=== PATIENT | female | born 1960 | race American Indian/Alaskan Native ===

== ENCOUNTER 2017-10-05 18:10 | Inpatient (IN) | payer MEDICARE, MEDICAID ==
[2017-10-05] MEDS ORDERED: Albuterol-Ipratrop 3 mg / 0.5 (3 ml) UD INH STA ×2 (18:37→21:52)
--- NOTE | 2017-10-05 18:42 | ED PDOC ---
HPI:STROKE - Time Time: 18:40 - Historian Historian: Patient, Family - Chief Complaint Chief Complaint: Weakness, Slurred speech, other (SOB) - Onset Onset: Weeks (1 week ago) - Timing Timing: Currently Symptomatic - Location Location: Speech Locate left: Upper extremity - Severity of pain Maximum severity:: Mild Severity Current: Mild - TPA Positive for Contraindication: Yes Reason tPA is not being Administered: symptoms ongoing for one week - Notes: Notes:: 57yo female presents c/o SOB, cough, and left arm weakness with inability to raise arm above head for last week. Denies falls or trauma. Admits to occassional slurred speech over course of week but none currently. On home oxygen. NIHSS Stroke Scale - Date/Time Evaluation Performed Date Performed: 10/05/17 Time Performed: 18:25 When Was NIHSS Performed: Baseline - How Severe is the Stroke Level of Consciousness: 0=Alert LOC to Questions: 0=Both comments correct LOC to commands: 0=Obeys both correctly Best Gaze: 0=Normal Visual: 0=No visual loss Facial: 0=Normal Motor Arm - Left: 2=Falls before 10 sec Motor Arm - Right: 0=No drift Motor Leg - Left: 1=Drift before 5 sec Motor Leg - Right: 0=No drift Limb Ataxia: 0=Absent Sensory: 0=Normal Best Language: 0=No aphasia Dysarthia: 0=Normal articulation Extinction & Inattention (Neglect): 0=Normal, no object Score: 3 rTPA Inclusion/Exclusion - Refusal of Treatment Patient Refused Treatment: No - Inclusion Criteria for Altepase Patient is 18 years or Older: Yes The Clinical Diagnosis of Ischemic Stroke That is Causing a Potentially Disabling Neurological Deficit: Yes Time of Onset is Well Established to be Less Than 270 Minute Before Treatment Would Begin: No Risk/Benefit Discussed With Patient/Family Member Present: No Past Medical History Reviewed: Historical Data, Nursing Documentation, Vital Signs Vital Signs: Last Vital Signs Temp 99.0 F 10/05/17 18:19 Pulse 102 H 10/05/17 18:19 Resp 20 10/05/17 18:19 BP 125/83 10/05/17 18:19 Pulse Ox 2 L 10/05/17 18:32 - Medical History PMH: Asthma, Bronchitis, COPD (on home O2) - Family History Family History: States: Unknown Family Hx - Living Arrangements Living Arrangements: With Family - Social History Current smoker - smoking cessation education provided: No (prior quit) - Immunization History Hx Tetanus Toxoid Vaccination: No Hx Influenza Vaccination: No Hx Pneumococcal Vaccination: Yes - Home Medications Home Medications: Ambulatory Orders Medication Instructions Recorded Unobtainable 07/12/17 - Allergies Allergies/Adverse Reactions: Allergies Allergy/AdvReac Type Severity Reaction Status Date / Time No Known Allergies Allergy Unverified 10/05/17 18:18 Review of Systems ROS Statement: Except As Marked, All Systems Reviewed And Found Negative Constitutional: Negative for: Fever Cardiovascular: Positive for: Chest Pain, Palpitations Respiratory: Positive for: Cough, Shortness of Breath, Sputum, Wheezing Gastrointestinal: Negative for: Abdominal Pain Genitourinary Female: Negative for: Dysuria Musculoskeletal: Positive for: Neck Pain, Shoulder Pain, Arm Pain. Negative for : Back Pain Skin: Negative for: Rash, Lesions Neurological: Positive for: Weakness. Negative for: Numbness, Incoordination, Change in Speech Psych: Positive for: Anxiety Physical Exam - Reviewed Nursing Documentation Reviewed: Yes Vital Signs Reviewed: Yes - Physical Exam Appears: Positive for: Uncomfortable (mild resp distress) Head Exam: Positive for: ATRAUMATIC, NORMAL INSPECTION, NORMOCEPHALIC Skin: Positive for: Normal Color, Warm, DRY Eye Exam: Positive for: EOMI, Normal appearance, PERRL ENT: Positive for: Normal ENT Inspection Neck: Positive for: Normal, Painless ROM Cardiovascular/Chest: Positive for: Regular Rate, Rhythm Respiratory: Positive for: Decreased Breath Sounds, Wheezing (mild), Respiratory Distress Pulses-Radial (L): 2+ Pulses-Radial (R): 2+ Gastrointestinal/Abdominal: Positive for: Soft. Negative for: Tenderness Back: Positive for: Normal Inspection Extremity: Positive for: Normal ROM Neurologic/Psych: Positive for: Alert, senior trainer II-XII, Oriented, Motor/Sensory Deficits (L arm weakness 3/5 falls to bed cannot actively raise above head). Negative for: Aphasia, Facial Droop - Laboratory Results Result Diagrams: 10/05/17 18:59 10/05/17 18:59 - ECG ECG: Positive for: Interpreted By Me ECG Rhythm: Positive for: Normal QRS, Sinus Rhythm, Nonspecific Changes Rate: 94 O2 Sat by Pulse Oximetry: 96 Pulse Ox Interpretation: Normal (On 2L NC) Medical Decision Making Medical Decision Making: workup for SOB/ COPD exacerbation w L arm weakness and pain initiated Imaging, bloodwork, duoneb and solumedrol ordered Supp O2 continued Endorse Dr Gonzalez 7p pending workup and likely admit, ASA after imaging return Dr Sweetie harley made aware Disposition - Clinical Impression Clinical Impression: COPD exacerbation, Arm weakness - Patient ED Disposition Is Patient to be Admitted: Transfer of Care - Disposition Disposition: Transfer of Care Disposition Time: 19:10 Condition: [facility] Forms: [email or web address] (Martiniquais) Patient Signed Over To: Gage Gonzalez
[2017-10-05] MEDS ORDERED: Sodium Chloride 0.9% 1,000 ML IV SCH (18:45)
[2017-10-05] MEDS ORDERED: Albuterol-Ipratrop 3 mg / 0.5 (3 ml) UD ONE ×2 (19:04→22:53)
[2017-10-05 19:06] LABS: EOS # 0.3 K/uL (0.0-0.7); EOS % 6.5 % (0.0-4.0); HEMOGLOBIN 12.6 g/dL (12.0-16.0); LYMPH # 1.5 K/uL (1.0-4.3); LYMPH % 29.5 % (20.0-40.0); MEAN CELL VOLUME 89.9 fl (81.0-99.0); MEAN CORPUSCULAR HEMOGLOBIN 27.2 pg (27.0-31.0); MEAN CORPUSCULAR HGB CONC 30.2 g/dL (33.0-37.0); MEAN PLATELET VOLUME 10.3 fl (7.2-11.7); MONO # 0.4 K/uL (0.0-0.8); NEUT # 2.7 K/uL (1.8-7.0); RBC 4.62 Mil/uL (3.80-5.20); RED CELL DISTRIBUTION WIDTH 14.7 % (11.5-14.5)
[2017-10-05 19:25] LABS: PROTHROMBIN TIME 11.5 Seconds (9.8-13.1)
[2017-10-05 19:27] LABS: LDL CHOLESTEROL 153 mg/dL (0-129)
[2017-10-05 19:34] LABS: ALB/GLOB RATIO 1.5 (1.0-2.1); ALBUMIN 4.5 g/dL (3.5-5.0); ALT/SGPT 23 U/L (9-52); AST/SGOT 24 U/L (14-36); BLOOD UREA NITROGEN 18 mg/dl (7-17); CALCIUM 9.7 mg/dL (8.4-10.2); GFR AFRICAN-AMERICAN > 60; GFR NON-AFRICAN AMERICAN > 60; HDL CHOLESTEROL 63 MG/DL (30-70)
--- NOTE | 2017-10-05 19:44 | ED PDOC ---
- Laboratory Results Result Diagrams: 10/05/17 18:59 10/05/17 18:59 - ECG O2 Sat by Pulse Oximetry: 98 Medical Decision Making Medical Decision Making: Time: 1899 --Patient endorsed to provider by Dr. Rubio, pending CT imaging results. ASA to be given after CT. Patient will most likely require hospital admission. Time: 2116 --CT head FINDINGS: Brain: No intracranial hemorrhage. No significant white matter disease. No evidence of evolved territorial infarct. No mass effect or midline shift. Ventricles: Unremarkable. No ventriculomegaly. Bones/joints: No acute osseous abnormality. Soft tissues: No soft tissue swelling. Sinuses: Visualized paranasal sinuses are clear. Mastoid air cells: Mastoid air cells are well-aerated. IMPRESSION: No acute findings Time: 2131 --CT cspine FINDINGS: Vertebrae: Congenital non-fusion of the posterior arch of C1. Vertebral body heights are maintained. No fracture or acute listhesis. Discs/spinal canal/neural foramina: Multilevel degenerative disc disease without significant central canal stenosis. Soft tissues: No prevertebral soft tissue swelling. Lung apices: 5 mm left apical pulmonary nodule. Severe emphysema. IMPRESSION: 1. No acute findings. 2. 5 mm left apical pulmonary nodule. As per Fleischner Society guidelines for follow-up and management of pulmonary nodules less than 6 mm: For patients at high risk (history of smoking or of other known risk factors), consider follow-up chest CT at 12 months Per patient her PCP is Dr Webber at [facility] and not Dr Erickson. Scribe Attestation: Documented by Georgette Combs, acting as a scribe for Gage Gonzalez MD. Provider Scribe Attestation: All medical record entries made by the Scribe were at my direction and personally dictated by me. I have reviewed the chart and agree that the record accurately reflects my personal performance of the history, physical exam, medical decision making, and the department course for this patient. I have also personally directed, reviewed, and agree with the discharge instructions and disposition. Disposition Discussed With Dr.: Jessee Collins Doctor Will See Patient In The: Hospital Counseled Patient/Family Regarding: Studies Performed, Diagnosis - Clinical Impression Clinical Impression: COPD exacerbation, Arm weakness - POA Present On Arrival: None - Disposition Disposition: Admitted as In-Patient Disposition Time: 22:12 Condition: [facility] Forms: [facility] (Welsh)
[2017-10-05 21:36] LABS: ABG ALLEN TEST YES; ARTERIAL BLOOD GAS HCO3 34.5 mmol/L (21-28); ARTERIAL BLOOD GAS HEMOGLOBIN 12.8 g/dL (11.7-17.4); ARTERIAL BLOOD GAS O2 CAPACITY 16.7 mL/dL (16-24); ARTERIAL BLOOD GAS O2 CONTENT 15.9 ML/dL (15-23); ARTERIAL BLOOD GAS O2 SAT 95.3 % (95-98); ARTERIAL BLOOD GAS PCO2 82 mm/Hg (35-45); ARTERIAL BLOOD GAS PH 7.32 (7.35-7.45); ARTERIAL BLOOD GAS PO2 59 mm/Hg (80-100); ARTERIAL BLOOD GAS TCO2 44.7 mmol/L (22-28)
[2017-10-06] MEDS: Sodium Chloride 0.9% 1,000 ML IV SCH ×2 (00:45→13:15)
[2017-10-06] MEDS ORDERED: Albuterol-Ipratrop 3 mg / 0.5 (3 ml) UD INH SCH (08:00)
--- NOTE | 2017-10-06 08:53 | RAD ---
PROCEDURE: Radiographs of the Left Shoulder HISTORY: L shoulder pain weakness COMPARISON: No prior. FINDINGS: BONES: No acute fracture. JOINTS: Unremarkable. SOFT TISSUES: Normal. OTHER FINDINGS: None. IMPRESSION: No demonstrated fracture or dislocation.
--- NOTE | 2017-10-06 08:53 | RAD ---
HISTORY: Code Stroke COMPARISON: No prior. FINDINGS: LUNGS: No active pulmonary disease. PLEURA: No significant pleural effusion identified, no pneumothorax apparent. CARDIOVASCULAR: Normal. OSSEOUS STRUCTURES: Degenerative changes. VISUALIZED UPPER ABDOMEN: Normal. OTHER FINDINGS: None. IMPRESSION: No active disease.
[2017-10-06] MEDS ORDERED: THEOPHYLLINE 200 MG PO SCH (09:00)
--- NOTE | 2017-10-06 09:12 | CT ---
PROCEDURE: CT HEAD WITHOUT CONTRAST. HISTORY: left arm weakness COMPARISON: None available. TECHNIQUE: Axial computed tomography images were obtained through the head/brain without intravenous contrast. Radiation dose: Total exam DLP = 773.5 mGy-cm. This CT exam was performed using one or more of the following dose reduction techniques: Automated exposure control, adjustment of the mA and/or kV according to patient size, and/or use of iterative reconstruction technique. FINDINGS: HEMORRHAGE: No intracranial hemorrhage. BRAIN: No mass effect or edema. No atrophy or chronic microvascular ischemic changes. VENTRICLES: Unremarkable. No hydrocephalus. CALVARIUM: Unremarkable. PARANASAL SINUSES: Unremarkable as visualized. No significant inflammatory changes. MASTOID AIR CELLS: Unremarkable as visualized. No inflammatory changes. OTHER FINDINGS: None. IMPRESSION: No acute intracranial pathology.
--- NOTE | 2017-10-06 09:16 | CT ---
PROCEDURE: CT Cervical Spine without contrast HISTORY: trauma r/o fx COMPARISON: None available. TECHNIQUE: Axial computed tomography images were obtained of the cervical spine without the use of intravenous contrast. Coronal and sagittal reformatted images were created and reviewed. Radiation dose: Total exam DLP = 429.6 mGy-cm. This CT exam was performed using one or more of the following dose reduction techniques: Automated exposure control, adjustment of the mA and/or kV according to patient size, and/or use of iterative reconstruction technique. FINDINGS: VERTEBRAE: No fracture. 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 Normal alignment. No destructive bony lesion. DISCS/SPINAL CANAL/NEURAL FORAMINA: Multilevel disc space narrowing. PARASPINAL SOFT TISSUES: Unremarkable. OTHER FINDINGS: Biapical emphysema and pleural parenchymal scar and. IMPRESSION: No acute fracture. Mild multilevel degenerative changes. Severe emphysema.
--- NOTE | 2017-10-06 11:09 | CP.PCM.CON ---
History of Present Illness - History of Present Illness History of Present Illness: 57 [place] OLD FEMALE REFERRED FOR PULMONARY EVALUATION BY DR FRANKS BECAUSE OF SHORTNESS OF BREATH AND CHEST TIGHTNESS X SEVERAL DAYS.SHE CONTINUES TO SMOKE CIGARETTES DESPITE BEING DIAGNOSED WITH COPD. SHE WAS PLACED ON BIPAP AND FEELS BETTER TODAY Past Patient History - Past Medical History & Family History Past Medical History?: Yes - Past Social History Smoking Status: Former Smoker - CARDIAC Hx Cardiac Disorders: No - PULMONARY Hx Asthma: Yes Hx Bronchitis: Yes Hx Chronic Obstructive Pulmonary Disease (COPD): Yes (on home O2) - NEUROLOGICAL Hx Neurological Disorder: No - HEENT Hx HEENT Problems: No - RENAL Hx Chronic Kidney Disease: No - ENDOCRINE/METABOLIC Hx Endocrine Disorders: No - HEMATOLOGICAL/ONCOLOGICAL Hx AIDS: No Hx Anemia: Yes Hx Blood Transfusions: No Hx Human Immunodeficiency Virus (HIV): No - INTEGUMENTARY Hx Dermatological Problems: No - MUSCULOSKELETAL/RHEUMATOLOGICAL Hx Falls: No - GASTROINTESTINAL Hx Gastrointestinal Disorders: No - GENITOURINARY/GYNECOLOGICAL Hx Genitourinary Disorders: No - PSYCHIATRIC Hx Substance Use: No - SURGICAL HISTORY Hx Surgeries: Yes Hx Section: Yes (x 1) Other/Comment: Lt. breast Cyst removal -benign - ANESTHESIA Hx Anesthesia: Yes Hx Anesthesia Reactions: No Meds Allergies/Adverse Reactions: Allergies Allergy/AdvReac Type Severity Reaction Status Date / Time No Known Allergies Allergy Unverified 10/05/17 18:18 - Medications Medications: Current Medications Albuterol/Ipratropium (Duoneb 3 Mg/0.5 Mg (3 Ml) Ud) 3 ml INH RQID [facility] Last Admin: 10/06/17 07:34 Dose: 3 ml Home Med (Theophylline [Ang-24 Tab]) 200 mg PO BID [facility] Sodium Chloride (Sodium Chloride 0.9%) 1,000 mls @ 80 mls/hr IV .[id number] [facility] Stop: 10/07/17 00:39 Last Admin: 10/06/17 00:45 Dose: 80 mls/hr Methylprednisolone (Solu-Medrol) 125 mg IVP Q8H [facility] Last Admin: 10/06/17 10:28 Dose: 125 mg Physical Exam - Constitutional Appears: No Acute Distress - Head Exam Head Exam: ATRAUMATIC, NORMAL INSPECTION, NORMOCEPHALIC - Eye Exam Eye Exam: EOMI, Normal appearance, PERRL Pupil Exam: NORMAL ACCOMODATION, PERRL - ENT Exam ENT Exam: Mucous Membranes Moist, Normal Exam - Neck Exam Neck exam: Positive for: Normal Inspection - Respiratory Exam Respiratory Exam: Decreased Breath Sounds, Prolonged Expiratory Phase, Rales, Wheezes - Cardiovascular Exam Cardiovascular Exam: REGULAR RHYTHM - GI/Abdominal Exam GI & Abdominal Exam: Normal Bowel Sounds, Soft. absent: Tenderness - Rectal Exam Rectal Exam: NORMAL INSPECTION - Extremities Exam Extremities exam: Positive for: normal inspection, tenderness Additional comments: TENDER L SHOULDER - Back Exam Back exam: NORMAL INSPECTION - Neurological Exam Neurological exam: Alert, CN II-XII Intact, Normal Gait, Oriented x3, Reflexes Normal - Psychiatric Exam Psychiatric exam: Normal Affect, Normal Mood - Skin Skin Exam: Dry, Intact, Normal Color, Warm Results - Vital Signs Recent Vital Signs: Last Vital Signs Temp 97.5 F L 10/06/17 08:00 Pulse 58 L 10/06/17 08:00 Resp 20 10/06/17 08:00 BP 100/64 10/06/17 08:00 Pulse Ox 100 10/06/17 08:00 - Labs Result Diagrams: 10/05/17 18:59 10/05/17 18:59 Labs: Laboratory Results - last 24 hr 10/05/17 10/05/17 10/05/17 17:00 18:58 18:59 WBC 5.0 RBC 4.62 Hgb 12.6 Hct 41.6 MCV 89.9 MCH 27.2 MCHC 30.2 L RDW 14.7 H Plt Count 131 MPV 10.3 Neut % (Auto) 54.0 Lymph % (Auto) 29.5 Starke % (Auto) 9.0 Eos % (Auto) 6.5 H Baso % (Auto) 1.0 Neut # (Auto) 2.7 Lymph # (Auto) 1.5 Starke # (Auto) 0.4 Eos # (Auto) 0.3 Baso # (Auto) 0.0 PT INR APTT pCO2 pO2 HCO3 ABG pH ABG Total CO2 ABG O2 Saturation ABG O2 Content ABG Base Excess ABG Hemoglobin ABG Carboxyhemoglobin POC ABG HHb (Measured) ABG Methemoglobin ABG O2 Capacity Louis Test A-a O2 Difference Hgb O2 Saturation FiO2 Crit Value Called To Crit Value Called By Crit Value Read Back Blood Gas Notified Time Sodium Potassium Chloride Carbon Dioxide Anion Gap BUN Creatinine Est GFR ( Amer) Est GFR (Non-Af Amer) POC Glucose (mg/dL) 136 H Random Glucose Calcium Total Bilirubin AST ALT Alkaline Phosphatase Troponin I Total Protein Albumin Globulin Albumin/Globulin Ratio Triglycerides Cholesterol LDL Cholesterol Direct HDL Cholesterol Blood Type A POSITIVE Antibody Screen Negative BBK History Checked No verified bt 10/05/17 10/05/17 10/05/17 18:59 18:59 21:28 WBC RBC Hgb Hct MCV MCH MCHC RDW Plt Count MPV Neut % (Auto) Lymph % (Auto) Starke % (Auto) Eos % (Auto) Baso % (Auto) Neut # (Auto) Lymph # (Auto) Starke # (Auto) Eos # (Auto) Baso # (Auto) PT 11.5 INR 1.0 APTT 35.0 pCO2 82 H* pO2 59 L HCO3 34.5 H ABG pH 7.32 L ABG Total CO2 44.7 H ABG O2 Saturation 95.3 ABG O2 Content 15.9 ABG Base Excess 12.6 H ABG Hemoglobin 12.8 ABG Carboxyhemoglobin 4.5 H POC ABG HHb (Measured) 4.4 ABG Methemoglobin 2.6 ABG O2 Capacity 16.7 Louis Test Yes A-a O2 Difference 38.0 Hgb O2 Saturation 88.5 L FiO2 28.0 Crit Value Called To natali Bennett Crit Value Called By 22 Crit Value Read Back Y Blood Gas Notified Time 2134 Sodium 142 Potassium 4.5 Chloride 93 L Carbon Dioxide 40 H* Anion Gap 14 BUN 18 H Creatinine 0.7 Est GFR ( Amer) > 60 Est GFR (Non-Af Amer) > 60 POC Glucose (mg/dL) Random Glucose 143 H Calcium 9.7 Total Bilirubin 0.4 AST 24 ALT 23 Alkaline Phosphatase 50 Troponin I < 0.0120 Total Protein 7.5 Albumin 4.5 Globulin 3.1 Albumin/Globulin Ratio 1.5 Triglycerides 65 Cholesterol 269 H LDL Cholesterol Direct 153 H HDL Cholesterol 63 Blood Type Antibody Screen BBK History Checked Assessment & Plan - Assessment and Plan (Free Text) Assessment: ACUTE EXAC OF COPD ACUTE HYPERCAPNEIC RESPIRATORY FAILURE Plan: SEE ORDERS - Date & Time Date: 10/06/17 Time: 11:13
--- NOTE | 2017-10-06 11:36 | RAD ---
PROCEDURE: Radiographs of the Left Shoulder HISTORY: left arm weakness COMPARISON: No prior. FINDINGS: BONES: No acute fracture. JOINTS: Mild resorption of the distal clavicle. SOFT TISSUES: Normal. OTHER FINDINGS: None. IMPRESSION: No demonstrated fracture or dislocation. Mild resorption of the distal clavicle.
--- NOTE | 2017-10-06 11:36 | RAD ---
PROCEDURE: Radiographs of the Right Shoulder HISTORY: left arm weakness COMPARISON: No prior. FINDINGS: BONES: No acute fracture. JOINTS: Unremarkable. SOFT TISSUES: Normal. OTHER FINDINGS: None. IMPRESSION: No demonstrated fracture or dislocation.
[2017-10-06] MEDS: Albuterol-Ipratrop 3 mg / 0.5 (3 ml) UD INH SCH ×3 (11:38→20:01)
[2017-10-06] MEDS: Fluticasone-Salmeterol 250-50mcg Diskus IH SCH ×2 (13:09→20:15)
[2017-10-06] MEDS: Pantoprazole 40 mg EC Tab PO SCH (13:11)
--- NOTE | 2017-10-06 19:19 | CP.PCM.CON ---
History of Present Illness - History of Present Illness History of Present Illness: Neurology Consultation Note: Mrs. Osorio is a 57-year-old woman with a past medical history of asthma, who presented to the ED yesterday with complaints of left side weakness for the last two weeks. In addition, she has generalized tremulousness and shakiness that she feels is getting worse. Of note, she is on beta agonists and solumedrol for her COPD/asthma. CT scan of head and cervical spine did not show any significant pathology. Review of Systems - Review of Systems All systems: reviewed and no additional remarkable complaints except Past Patient History - Past Medical History & Family History Past Medical History?: Yes - Past Social History Smoking Status: Former Smoker - CARDIAC Hx Cardiac Disorders: No - PULMONARY Hx Asthma: Yes Hx Bronchitis: Yes Hx Chronic Obstructive Pulmonary Disease (COPD): Yes (on home O2) - NEUROLOGICAL Hx Neurological Disorder: No - HEENT Hx HEENT Problems: No - RENAL Hx Chronic Kidney Disease: No - ENDOCRINE/METABOLIC Hx Endocrine Disorders: No - HEMATOLOGICAL/ONCOLOGICAL Hx AIDS: No Hx Anemia: Yes Hx Blood Transfusions: No Hx Human Immunodeficiency Virus (HIV): No - INTEGUMENTARY Hx Dermatological Problems: No - MUSCULOSKELETAL/RHEUMATOLOGICAL Hx Falls: No - GASTROINTESTINAL Hx Gastrointestinal Disorders: No - GENITOURINARY/GYNECOLOGICAL Hx Genitourinary Disorders: No - PSYCHIATRIC Hx Substance Use: No - SURGICAL HISTORY Hx Surgeries: Yes Hx Section: Yes (x 1) Other/Comment: Lt. breast Cyst removal -benign - ANESTHESIA Hx Anesthesia: Yes Hx Anesthesia Reactions: No Meds Allergies/Adverse Reactions: Allergies Allergy/AdvReac Type Severity Reaction Status Date / Time No Known Allergies Allergy Unverified 10/05/17 18:18 - Medications Medications: Current Medications Albuterol/Ipratropium (Duoneb 3 Mg/0.5 Mg (3 Ml) Ud) 3 ml INH RQ4 [facility] Last Admin: 10/06/17 16:07 Dose: 3 ml Home Med (Theophylline [Ang-24 Tab]) 200 mg PO BID [facility] Sodium Chloride (Sodium Chloride 0.9%) 1,000 mls @ 80 mls/hr IV .[id number] [facility] Stop: 10/07/17 00:39 Last Admin: 10/06/17 13:15 Dose: 80 mls/hr Methylprednisolone (Solu-Medrol) 125 mg IVP Q8H [facility] Last Admin: 10/06/17 10:28 Dose: 125 mg Pantoprazole Sodium (Protonix Ec Tab) 40 mg PO DAILY [facility] Last Admin: 10/06/17 13:11 Dose: 40 mg Fluticasone/Salmeterol (Advair Diskus 250/50) 1 puff IH Q12 [facility] Last Admin: 10/06/17 13:09 Dose: 1 puff Physical Exam - Neurological Exam Neurological exam: Abnormal Gait, CN II-XII Intact, Oriented x3, Reflexes Normal Additional comments: AAOX3, speech is fluent, but tremulous, high frequency shaking, generalized weakness slightly more pronounced on the left than the right. Reflexes are normal. Plantar responses are downgoing. Results - Vital Signs Recent Vital Signs: Last Vital Signs Temp 99.0 F 10/06/17 17:06 Pulse 93 H 10/06/17 17:06 Resp 18 10/06/17 17:06 BP 117/72 10/06/17 12:35 Pulse Ox 94 L 10/06/17 17:06 - Labs Result Diagrams: 10/05/17 18:59 10/05/17 18:59 Labs: Laboratory Results - last 24 hr 10/05/17 10/05/17 10/05/17 17:00 18:59 18:59 PT 11.5 INR 1.0 APTT 35.0 pCO2 pO2 HCO3 ABG pH ABG Total CO2 ABG O2 Saturation ABG O2 Content ABG Base Excess ABG Hemoglobin ABG Carboxyhemoglobin POC ABG HHb (Measured) ABG Methemoglobin ABG O2 Capacity Louis Test A-a O2 Difference Hgb O2 Saturation FiO2 Crit Value Called To Crit Value Called By Crit Value Read Back Blood Gas Notified Time Sodium 142 Potassium 4.5 Chloride 93 L Carbon Dioxide 40 H* Anion Gap 14 BUN 18 H Creatinine 0.7 Est GFR ( Amer) > 60 Est GFR (Non-Af Amer) > 60 Random Glucose 143 H Calcium 9.7 Total Bilirubin 0.4 AST 24 ALT 23 Alkaline Phosphatase 50 Troponin I < 0.0120 Total Protein 7.5 Albumin 4.5 Globulin 3.1 Albumin/Globulin Ratio 1.5 Triglycerides 65 Cholesterol 269 H LDL Cholesterol Direct 153 H HDL Cholesterol 63 Blood Type A POSITIVE Antibody Screen Negative BBK History Checked No verified bt 10/05/17 21:28 PT INR APTT pCO2 82 H* pO2 59 L HCO3 34.5 H ABG pH 7.32 L ABG Total CO2 44.7 H ABG O2 Saturation 95.3 ABG O2 Content 15.9 ABG Base Excess 12.6 H ABG Hemoglobin 12.8 ABG Carboxyhemoglobin 4.5 H POC ABG HHb (Measured) 4.4 ABG Methemoglobin 2.6 ABG O2 Capacity 16.7 Louis Test Yes A-a O2 Difference 38.0 Hgb O2 Saturation 88.5 L FiO2 28.0 Crit Value Called To natali Bennett Crit Value Called By 22 Crit Value Read Back Y Blood Gas Notified Time 2134 Sodium Potassium Chloride Carbon Dioxide Anion Gap BUN Creatinine Est GFR ( Amer) Est GFR (Non-Af Amer) Random Glucose Calcium Total Bilirubin AST ALT Alkaline Phosphatase Troponin I Total Protein Albumin Globulin Albumin/Globulin Ratio Triglycerides Cholesterol LDL Cholesterol Direct HDL Cholesterol Blood Type Antibody Screen BBK History Checked Assessment & Plan (1) Arm weakness Assessment and Plan: The patient has generalized weakness and tremulousness. 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 I recommend obtaining an MRI of the brain to rule out central pathology since her weakness is slightly asymmetrical. If negative, consider lowering the dose of steroids or using steroid sparing medications. Thank you. Status: Chronic Priority: High
[2017-10-07] MEDS: Albuterol-Ipratrop 3 mg / 0.5 (3 ml) UD INH SCH ×7 (00:12→23:35)
[2017-10-07 05:19] LABS: ABG ALLEN TEST YES
--- NOTE | 2017-10-07 08:11 | CP.PCM.PN ---
Subjective - Date & Time of Evaluation Date of Evaluation: 10/07/17 Time of Evaluation: 08:09 - Subjective Subjective: Ms. Osorio was seen and examined at the bedside. She is alert, oriented on bipap machine. She denies any dizziness, weakness, headache, but claims of having fair appetite. She is able to follow simple commands with speech is fluent, tremulous, high frequency shaking, generalized weakness slightly more pronounced on the left than the right. There was no untoward events overnight. Objective - Vital Signs/Intake and Output Vital Signs (last 24 hours): Temp Pulse Resp BP Pulse Ox 97.6 F 80 20 102/64 100 10/07/17 05:00 10/07/17 05:06 10/07/17 05:00 10/07/17 05:00 10/07/17 05:00 - Medications Medications: Current Medications Albuterol/Ipratropium (Duoneb 3 Mg/0.5 Mg (3 Ml) Ud) 3 ml INH RQ4 [facility] Last Admin: 10/07/17 07:43 Dose: 3 ml Home Med (Theophylline [Ang-24 Tab]) 200 mg PO BID [facility] Methylprednisolone (Solu-Medrol) 125 mg IVP Q8H [facility] Last Admin: 10/07/17 04:27 Dose: 125 mg Pantoprazole Sodium (Protonix Ec Tab) 40 mg PO DAILY [facility] Last Admin: 10/06/17 13:11 Dose: 40 mg Fluticasone/Salmeterol (Advair Diskus 250/50) 1 puff IH Q12 [facility] Last Admin: 10/06/17 20:15 Dose: 1 puff - Labs Labs: 10/05/17 18:59 10/05/17 18:59 PT 11.5 Seconds (9.8-13.1) 10/05/17 18:59 INR 1.0 (0.9-1.2) 10/05/17 18:59 APTT 35.0 Seconds (25.6-37.1) 10/05/17 18:59 - Constitutional Appears: No Acute Distress - Head Exam Head Exam: ATRAUMATIC, NORMAL INSPECTION, NORMOCEPHALIC - Eye Exam Pupil Exam: PERRL - Neurological Exam Neurological Exam: Alert, Awake, Oriented x3 Neuro motor strength exam: Left Upper Extremity: 4, Right Upper Extremity: 5, Left Lower Extremity: 4, Right Lower Extremity: 5 Additional comments: AAOX3, speech is fluent, but tremulous, high frequency shaking, generalized weakness slightly more pronounced on the left than the right. Assessment and Plan (1) Arm weakness Assessment & Plan: CAse discussed with DR. Pitt, continue all current medical regimen. Pending MRI of the brain to determine any brain etiology of the weakness, hydration. Status: Chronic
[2017-10-07] MEDS: Pantoprazole 40 mg EC Tab PO SCH (08:52)
[2017-10-07] MEDS: Fluticasone-Salmeterol 250-50mcg Diskus IH SCH ×2 (08:52→20:42)
--- NOTE | 2017-10-07 11:25 | CP.PCM.PN ---
Subjective - Date & Time of Evaluation Date of Evaluation: 10/07/17 Time of Evaluation: 11:25 - Subjective Subjective: FEELS BETTER SOB IMPROVED NO CHEST PAINS LABS REVIEWED Objective - Vital Signs/Intake and Output Vital Signs (last 24 hours): Temp Pulse Resp BP Pulse Ox 97.5 F L 67 18 109/66 100 10/07/17 09:00 10/07/17 09:00 10/07/17 09:00 10/07/17 09:00 10/07/17 09:00 - Medications Medications: Current Medications Albuterol/Ipratropium (Duoneb 3 Mg/0.5 Mg (3 Ml) Ud) 3 ml INH RQ4 [facility] Last Admin: 10/07/17 11:16 Dose: 3 ml Home Med (Theophylline [Ang-24 Tab]) 200 mg PO BID [facility] Methylprednisolone (Solu-Medrol) 125 mg IVP Q8H [facility] Last Admin: 10/07/17 11:18 Dose: 125 mg Pantoprazole Sodium (Protonix Ec Tab) 40 mg PO DAILY [facility] Last Admin: 10/07/17 08:52 Dose: 40 mg Fluticasone/Salmeterol (Advair Diskus 250/50) 1 puff IH Q12 [facility] Last Admin: 10/07/17 08:52 Dose: 1 puff - Labs Labs: 10/05/17 18:59 10/05/17 18:59 PT 11.5 Seconds (9.8-13.1) 10/05/17 18:59 INR 1.0 (0.9-1.2) 10/05/17 18:59 APTT 35.0 Seconds (25.6-37.1) 10/05/17 18:59 - Constitutional Appears: No Acute Distress - Head Exam Head Exam: ATRAUMATIC, NORMAL INSPECTION, NORMOCEPHALIC - Eye Exam Eye Exam: EOMI, Normal appearance, PERRL Pupil Exam: NORMAL ACCOMODATION, PERRL - ENT Exam ENT Exam: Mucous Membranes Moist, Normal Exam - Neck Exam Neck Exam: Full ROM, Normal Inspection. absent: Lymphadenopathy - Respiratory Exam Respiratory Exam: Prolonged Expiratory Phase, NORMAL BREATHING PATTERN - Cardiovascular Exam Cardiovascular Exam: REGULAR RHYTHM, +S1, +S2. absent: Murmur - GI/Abdominal Exam GI & Abdominal Exam: Soft, Normal Bowel Sounds. absent: Tenderness - Rectal Exam Rectal Exam: NORMAL INSPECTION - Extremities Exam Extremities Exam: Full ROM, Normal Capillary Refill, Normal Inspection. absent : Joint Swelling, Pedal Edema - Back Exam Back Exam: NORMAL INSPECTION - Neurological Exam Neurological Exam: Alert, Awake, CN II-XII Intact, Normal Gait, Oriented x3 - Psychiatric Exam Psychiatric exam: Normal Affect, Normal Mood - Skin Skin Exam: Dry, Intact, Normal Color, Warm Assessment and Plan - Assessment and Plan (Free Text) Assessment: COPD EXAC CHRONIC CIGARETTE SMOKER HYPERCAPNEA DUE TO COPD Plan: CONTINUE CURRENT THERAPY WILL D/C THEOPHYLLINE SINCE PT HAS NOT BEEN USING MED AND LEVEL IS SUBTHERAPEUTIC
--- NOTE | 2017-10-07 19:41 | CP.PCM.HP ---
History of Present Illness - History of Present Illness History of Present Illness: This is a 57 y/o female admitted for increasing SOB and weakness for the past few days. She has a hx of COPD from chronic smoking but continues to smoke despite her condition. She has home Oxygen . She also complained of left hand weakness for 2 weeks and has limited left shoulder . She was noted to have elevated CO2 n initial ABG's and was placed on Bipap. She takes Advair and Theophylline but theophylline levels were subtherapeutic. Present on Admission - Present on Admission Any Indicators Present on Admission: No History of DVT/PE: No History of Uncontrolled Diabetes: No Urinary Catheter: No Decubitus Ulcer Present: No Review of Systems - Respiratory Respiratory: Cough, Dyspnea Past Patient History - Past Medical History & Family History Past Medical History?: Yes - Past Social History Smoking Status: Former Smoker - CARDIAC Hx Cardiac Disorders: No - PULMONARY Hx Asthma: Yes Hx Bronchitis: Yes Hx Chronic Obstructive Pulmonary Disease (COPD): Yes (on home O2) - NEUROLOGICAL Hx Neurological Disorder: No - HEENT Hx HEENT Problems: No - RENAL Hx Chronic Kidney Disease: No - ENDOCRINE/METABOLIC Hx Endocrine Disorders: No - HEMATOLOGICAL/ONCOLOGICAL Hx AIDS: No Hx Anemia: Yes Hx Blood Transfusions: No Hx Human Immunodeficiency Virus (HIV): No - INTEGUMENTARY Hx Dermatological Problems: No - MUSCULOSKELETAL/RHEUMATOLOGICAL Hx Falls: No - GASTROINTESTINAL Hx Gastrointestinal Disorders: No - GENITOURINARY/GYNECOLOGICAL Hx Genitourinary Disorders: No - PSYCHIATRIC Hx Substance Use: No - SURGICAL HISTORY Hx Surgeries: Yes Hx Section: Yes (x 1) Other/Comment: Lt. breast Cyst removal -benign - ANESTHESIA Hx Anesthesia: Yes Hx Anesthesia Reactions: No Meds Allergies/Adverse Reactions: Allergies Allergy/AdvReac Type Severity Reaction Status Date / Time No Known Allergies Allergy Unverified 10/05/17 18:18 Physical Exam - Head Exam Head Exam: NORMAL INSPECTION - Eye Exam Eye Exam: Normal appearance - ENT Exam ENT Exam: Mucous Membranes Moist - Respiratory Exam Respiratory Exam: Decreased Breath Sounds, Rhonchi - Cardiovascular Exam Cardiovascular Exam: REGULAR RHYTHM - GI/Abdominal Exam GI & Abdominal Exam: Normal Bowel Sounds - Neurological Exam Neurological exam: CN II-XII Intact, Oriented x3 - Psychiatric Exam Psychiatric exam: Anxious Results - Vital Signs Recent Vital Signs: Last Vital Signs Temp 97.4 F L 07/08/18 16:26 Pulse 88 10/07/17 16:26 Resp 16 10/07/17 16:26 BP 102/58 L 10/07/17 16:26 Pulse Ox 97 10/07/17 16:26 - Labs Result Diagrams: 10/05/17 18:59 10/05/17 18:59 Labs: Laboratory Results - last 24 hr 10/07/17 10/07/17 04:00 07:08 pCO2 77 H* pO2 191 H HCO3 31.3 H ABG pH 7.29 L ABG Total CO2 39.4 H ABG O2 Saturation 100.2 H ABG O2 Content 15.0 ABG Base Excess 8.2 H ABG Hemoglobin 10.7 L ABG Carboxyhemoglobin 1.4 POC ABG HHb (Measured) -0.2 L ABG Methemoglobin 1.9 ABG O2 Capacity 15.0 L Louis Test Yes A-a O2 Difference 141.0 Hgb O2 Saturation 96.8 Vent Mode Bipap Mechanical Rate 12 FiO2 60.0 Inspiratory BiPAP 10 Expiratory BiPAP 5 Crit Value Called To Dr devante wei Crit Value Called By Hans Crit Value Read Back Y Blood Gas Notified Time 519 Theophylline < 1.0 L Assessment & Plan (1) COPD exacerbation Status: Acute (2) Rotator cuff arthropathy of left shoulder Status: Acute (3) Tobacco abuse disorder Status: Acute (4) Hypercapnia Status: Acute - Assessment and Plan (Free Text) Plan: Continue BIPAP Monitor ABG's neb tx steroids iv check a1c xray and mRI of the left shoulder phys therapy
--- NOTE | 2017-10-07 19:56 | CP.PCM.PN ---
Subjective - Date & Time of Evaluation Date of Evaluation: 10/07/17 Time of Evaluation: 12:20 - Subjective Subjective: Patient feels a lot better Noted hyperglycemia Xray of left shoulder is unremarkable Last ABG still shows elevated CO2 Noted elevated LDL Objective - Vital Signs/Intake and Output Vital Signs (last 24 hours): Temp Pulse Resp BP Pulse Ox 97.4 F L 88 16 102/58 L 97 10/07/17 16:26 10/07/17 16:26 10/07/17 16:26 10/07/17 16:26 10/07/17 16:26 - Medications Medications: Current Medications Albuterol/Ipratropium (Duoneb 3 Mg/0.5 Mg (3 Ml) Ud) 3 ml INH RQ4 [facility] Last Admin: 10/07/17 19:32 Dose: 3 ml Atorvastatin Calcium (Lipitor) 20 mg PO DAILY [facility] Last Admin: 10/07/17 17:09 Dose: 20 mg Methylprednisolone (Solu-Medrol) 125 mg IVP Q8H [facility] Last Admin: 10/07/17 11:18 Dose: 125 mg Pantoprazole Sodium (Protonix Ec Tab) 40 mg PO DAILY [facility] Last Admin: 10/07/17 08:52 Dose: 40 mg Fluticasone/Salmeterol (Advair Diskus 250/50) 1 puff IH Q12 [facility] Last Admin: 10/07/17 08:52 Dose: 1 puff - Labs Labs: 10/05/17 18:59 10/05/17 18:59 PT 11.5 Seconds (9.8-13.1) 10/05/17 18:59 INR 1.0 (0.9-1.2) 10/05/17 18:59 APTT 35.0 Seconds (25.6-37.1) 10/05/17 18:59 - Head Exam Head Exam: NORMAL INSPECTION - Eye Exam Eye Exam: Normal appearance - ENT Exam ENT Exam: Mucous Membranes Moist - Respiratory Exam Respiratory Exam: Decreased Breath Sounds, Rhonchi - Cardiovascular Exam Cardiovascular Exam: REGULAR RHYTHM - GI/Abdominal Exam GI & Abdominal Exam: Normal Bowel Sounds - Neurological Exam Neurological Exam: Awake, Oriented x3 Assessment and Plan (1) COPD exacerbation Status: Acute (2) Rotator cuff arthropathy of left shoulder Status: Acute (3) Tobacco abuse disorder Status: Acute (4) Hypercapnia Status: Acute (5) Hyperlipidemia Status: Acute (6) Hyperglycemia Status: Acute - Assessment and Plan (Free Text) Plan: Check A1c start atorvastatin discussed labs MRI of the left shoulder phys therapy transfer to reg floor.
[2017-10-08] MEDS: Albuterol-Ipratrop 3 mg / 0.5 (3 ml) UD INH SCH ×6 (04:36→23:37)
--- NOTE | 2017-10-08 08:14 | CP.PCM.PN ---
Subjective - Date & Time of Evaluation Date of Evaluation: 10/08/17 Time of Evaluation: 08:14 - Subjective Subjective: NO CHEST PAINS/SOB FEELS BETTER EXCEPT FOR L SHOULDER PAIN Objective - Vital Signs/Intake and Output Vital Signs (last 24 hours): Temp Pulse Resp BP Pulse Ox 98.1 F 82 18 104/66 99 10/08/17 08:00 10/08/17 08:00 10/08/17 08:00 10/08/17 08:00 10/08/17 08:00 - Medications Medications: Current Medications Albuterol/Ipratropium (Duoneb 3 Mg/0.5 Mg (3 Ml) Ud) 3 ml INH RQ4 [facility] Last Admin: 10/08/17 07:41 Dose: 3 ml Atorvastatin Calcium (Lipitor) 20 mg PO DAILY [facility] Last Admin: 10/07/17 17:09 Dose: 20 mg Methylprednisolone (Solu-Medrol) 125 mg IVP Q8H [facility] Last Admin: 10/08/17 03:39 Dose: 125 mg Pantoprazole Sodium (Protonix Ec Tab) 40 mg PO DAILY [facility] Last Admin: 10/07/17 08:52 Dose: 40 mg Fluticasone/Salmeterol (Advair Diskus 250/50) 1 puff IH Q12 [facility] Last Admin: 10/07/17 20:42 Dose: 1 puff - Labs Labs: 10/05/17 18:59 10/05/17 18:59 PT 11.5 Seconds (9.8-13.1) 10/05/17 18:59 INR 1.0 (0.9-1.2) 10/05/17 18:59 APTT 35.0 Seconds (25.6-37.1) 10/05/17 18:59 - Constitutional Appears: No Acute Distress - Head Exam Head Exam: ATRAUMATIC, NORMAL INSPECTION, NORMOCEPHALIC - Eye Exam Eye Exam: EOMI, Normal appearance, PERRL Pupil Exam: NORMAL ACCOMODATION, PERRL - ENT Exam ENT Exam: Mucous Membranes Moist, Normal Exam - Neck Exam Neck Exam: Full ROM, Normal Inspection. absent: Lymphadenopathy - Respiratory Exam Respiratory Exam: Decreased Breath Sounds, Prolonged Expiratory Phase, Rales, Wheezes, NORMAL BREATHING PATTERN - Cardiovascular Exam Cardiovascular Exam: REGULAR RHYTHM, +S1, +S2. absent: Murmur - GI/Abdominal Exam GI & Abdominal Exam: Soft, Normal Bowel Sounds. absent: Tenderness - Rectal Exam Rectal Exam: NORMAL INSPECTION - Extremities Exam Extremities Exam: Full ROM, Normal Capillary Refill, Normal Inspection, Tenderness. absent: Joint Swelling, Pedal Edema - Back Exam Back Exam: NORMAL INSPECTION - Neurological Exam Neurological Exam: Alert, Awake, CN II-XII Intact, Normal Gait, Oriented x3 - Psychiatric Exam Psychiatric exam: Normal Affect, Normal Mood - Skin Skin Exam: Dry, Intact, Normal Color, Warm Assessment and Plan - Assessment and Plan (Free Text) Assessment: COPD IMPROVING HYPERCAPNEA L SHOULDER PAIN Plan: CONTINUE CURRENT THERAPY REPEAT ABGS TODAY
[2017-10-08] MEDS: Pantoprazole 40 mg EC Tab PO SCH (08:38)
[2017-10-08] MEDS: Fluticasone-Salmeterol 250-50mcg Diskus IH SCH ×2 (08:38→21:36)
[2017-10-08 08:54] LABS: ARTERIAL BLOOD GAS HCO3 33.5 mmol/L (21-28); ARTERIAL BLOOD GAS O2 CAPACITY 16.3 mL/dL (16-24); ARTERIAL BLOOD GAS O2 CONTENT 15.5 ML/dL (15-23); ARTERIAL BLOOD GAS O2 SAT 95.2 % (95-98); ARTERIAL BLOOD GAS PCO2 78 mm/Hg (35-45); ARTERIAL BLOOD GAS PH 7.32 (7.35-7.45); ARTERIAL BLOOD GAS PO2 59 mm/Hg (80-100); ARTERIAL BLOOD GAS TCO2 42.6 mmol/L (22-28)
--- NOTE | 2017-10-08 10:04 | CP.PCM.PN ---
Subjective - Date & Time of Evaluation Date of Evaluation: 10/08/17 Time of Evaluation: 10:04 - Subjective Subjective: Ms. Osorio was seen and examined at the bedside. She is alert, oriented on nasal cannula for oxygen maintenance. She denies any dizziness, weakness, headache, but claims of having fair appetite. She is able to follow simple commands with speech is fluent, mild tremulous, high frequency shaking, generalized weakness slightly more pronounced on the left than the right. There was no untoward events overnight. Objective - Vital Signs/Intake and Output Vital Signs (last 24 hours): Temp Pulse Resp BP Pulse Ox 98.1 F 82 18 104/66 99 10/08/17 08:00 10/08/17 08:00 10/08/17 08:00 10/08/17 08:00 10/08/17 08:00 - Medications Medications: Current Medications Albuterol/Ipratropium (Duoneb 3 Mg/0.5 Mg (3 Ml) Ud) 3 ml INH RQ4 [facility] Last Admin: 10/08/17 07:41 Dose: 3 ml Atorvastatin Calcium (Lipitor) 20 mg PO DAILY [facility] Last Admin: 10/08/17 08:38 Dose: 20 mg Methylprednisolone (Solu-Medrol) 125 mg IVP Q8H [facility] Last Admin: 10/08/17 03:39 Dose: 125 mg Pantoprazole Sodium (Protonix Ec Tab) 40 mg PO DAILY [facility] Last Admin: 10/08/17 08:38 Dose: 40 mg Fluticasone/Salmeterol (Advair Diskus 250/50) 1 puff IH Q12 [facility] Last Admin: 10/08/17 08:38 Dose: 1 puff - Labs Labs: 10/05/17 18:59 10/05/17 18:59 PT 11.5 Seconds (9.8-13.1) 10/05/17 18:59 INR 1.0 (0.9-1.2) 10/05/17 18:59 APTT 35.0 Seconds (25.6-37.1) 10/05/17 18:59 - Constitutional Appears: No Acute Distress - Head Exam Head Exam: NORMAL INSPECTION - Eye Exam Pupil Exam: PERRL - Neurological Exam Neurological Exam: Alert, Awake, Oriented x3 Neuro motor strength exam: Left Upper Extremity: 3, Right Upper Extremity: 4, Left Lower Extremity: 4, Right Lower Extremity: 4 Additional comments: neurological unchanged from previous examination. Assessment and Plan (1) Arm weakness Assessment & Plan: Case discussed with jude Springer all current medical regimen. Recommend MRI of the left shoulder, physical therapy, and orthopedic consult. Neurology is signing off from this case since the left arm weakness is ortho. Status: Chronic
--- NOTE | 2017-10-08 10:20 | CARD ---
APPROVED REPORT EKG Measurement Heart [id number] <Conclusion> Normal sinus rhythm Normal ECG
[2017-10-09 00:30] VITALS: RESP 18
[2017-10-09] MEDS: Albuterol-Ipratrop 3 mg / 0.5 (3 ml) UD INH SCH ×3 (05:18→11:20)
--- NOTE | 2017-10-09 08:08 | CP.PCM.PN ---
Subjective - Date & Time of Evaluation Date of Evaluation: 10/09/17 Time of Evaluation: 08:07 - Subjective Subjective: SOB IMPROVED FEELS BETTER EXCEPT FOR L SHOULDER PAIN Objective - Vital Signs/Intake and Output Vital Signs (last 24 hours): Temp Pulse Resp BP Pulse Ox 97.4 F L 71 18 106/69 100 10/09/17 05:25 10/09/17 05:25 10/09/17 05:25 10/09/17 05:25 10/09/17 05:25 - Medications Medications: Current Medications Albuterol/Ipratropium (Duoneb 3 Mg/0.5 Mg (3 Ml) Ud) 3 ml INH RQ4 [facility] Last Admin: 10/09/17 08:04 Dose: 3 ml Atorvastatin Calcium (Lipitor) 20 mg PO DAILY [facility] Last Admin: 10/08/17 08:38 Dose: 20 mg Methylprednisolone (Solu-Medrol) 125 mg IVP Q8H [facility] Last Admin: 10/09/17 03:11 Dose: 125 mg Pantoprazole Sodium (Protonix Ec Tab) 40 mg PO DAILY [facility] Last Admin: 10/08/17 08:38 Dose: 40 mg Fluticasone/Salmeterol (Advair Diskus 250/50) 1 puff IH Q12 [facility] Last Admin: 10/08/17 21:36 Dose: 1 puff - Labs Labs: 10/05/17 18:59 10/05/17 18:59 PT 11.5 Seconds (9.8-13.1) 10/05/17 18:59 INR 1.0 (0.9-1.2) 10/05/17 18:59 APTT 35.0 Seconds (25.6-37.1) 10/05/17 18:59 - Constitutional Appears: No Acute Distress - Head Exam Head Exam: ATRAUMATIC, NORMAL INSPECTION, NORMOCEPHALIC - Eye Exam Eye Exam: EOMI, Normal appearance, PERRL Pupil Exam: NORMAL ACCOMODATION, PERRL - ENT Exam ENT Exam: Mucous Membranes Moist, Normal Exam - Neck Exam Neck Exam: Full ROM, Normal Inspection. absent: Lymphadenopathy - Respiratory Exam Respiratory Exam: Clear to Ausculation Bilateral, Prolonged Expiratory Phase, NORMAL BREATHING PATTERN - Cardiovascular Exam Cardiovascular Exam: REGULAR RHYTHM, +S1, +S2. absent: Murmur - GI/Abdominal Exam GI & Abdominal Exam: Soft, Normal Bowel Sounds. absent: Tenderness - Rectal Exam Rectal Exam: NORMAL INSPECTION - Extremities Exam Extremities Exam: Full ROM, Normal Capillary Refill, Normal Inspection, Tenderness. absent: Joint Swelling, Pedal Edema - Back Exam Back Exam: NORMAL INSPECTION - Neurological Exam Neurological Exam: Alert, Awake, CN II-XII Intact, Normal Gait, Oriented x3 - Psychiatric Exam Psychiatric exam: Normal Affect, Normal Mood - Skin Skin Exam: Dry, Intact, Normal Color, Warm Assessment and Plan - Assessment and Plan (Free Text) Assessment: COPD IMPROVED SHOULDER PAIN Plan: CONTINUE CURRENT RX
[2017-10-09 08:23] VITALS: O2SAT 97
[2017-10-09] MEDS: Pantoprazole 40 mg EC Tab PO SCH (08:57)
[2017-10-09] MEDS: Fluticasone-Salmeterol 250-50mcg Diskus IH SCH (08:57)
[2017-10-09 10:59] LABS: ABG ALLEN TEST YES; ARTERIAL BLOOD GAS HCO3 33.5 mmol/L (21-28); ARTERIAL BLOOD GAS O2 SAT 95.2 % (95-98); ARTERIAL BLOOD GAS PCO2 78 mm/Hg (35-45); ARTERIAL BLOOD GAS PH 7.32 (7.35-7.45); ARTERIAL BLOOD GAS PO2 59 mm/Hg (80-100); ARTERIAL BLOOD GAS TCO2 42.6 mmol/L (22-28)
[2017-10-09 11:01] LABS: ARTERIAL BLOOD GAS FIO2 28 %
--- NOTE | 2017-10-09 11:11 | CP.PCM.PN ---
Subjective - Date & Time of Evaluation Date of Evaluation: 10/08/17 Time of Evaluation: 10:25 - Subjective Subjective: Patient has less SOB ABG's still shows elevated CO2 78 On Bipap at hs. Has no chest pain Continues to have pain and limited motion of the left shoulder. Objective - Vital Signs/Intake and Output Vital Signs (last 24 hours): Temp Pulse Resp BP Pulse Ox 98.5 F 79 18 107/68 97 10/09/17 08:23 10/09/17 08:23 10/09/17 08:23 10/09/17 08:23 10/09/17 08:23 - Medications Medications: Current Medications Albuterol/Ipratropium (Duoneb 3 Mg/0.5 Mg (3 Ml) Ud) 3 ml INH RQ4 [facility] Last Admin: 10/09/17 08:04 Dose: 3 ml Atorvastatin Calcium (Lipitor) 20 mg PO DAILY [facility] Last Admin: 10/08/17 08:38 Dose: 20 mg Methylprednisolone (Solu-Medrol) 80 mg IVP Q8H [facility] Last Admin: 10/09/17 08:57 Dose: 80 mg Pantoprazole Sodium (Protonix Ec Tab) 40 mg PO DAILY [facility] Last Admin: 10/09/17 08:57 Dose: 40 mg Fluticasone/Salmeterol (Advair Diskus 250/50) 1 puff IH Q12 [facility] Last Admin: 10/09/17 08:57 Dose: 1 puff - Labs Labs: 10/05/17 18:59 10/05/17 18:59 PT 11.5 Seconds (9.8-13.1) 10/05/17 18:59 INR 1.0 (0.9-1.2) 10/05/17 18:59 APTT 35.0 Seconds (25.6-37.1) 10/05/17 18:59 - Head Exam Head Exam: NORMAL INSPECTION - ENT Exam ENT Exam: Mucous Membranes Moist - Respiratory Exam Respiratory Exam: Decreased Breath Sounds - Cardiovascular Exam Cardiovascular Exam: REGULAR RHYTHM - GI/Abdominal Exam GI & Abdominal Exam: Normal Bowel Sounds - Extremities Exam Additional comments: limited ROM of the left shoulder - Neurological Exam Neurological Exam: CN II-XII Intact, Oriented x3 Assessment and Plan (1) COPD exacerbation Status: Acute (2) Rotator cuff arthropathy of left shoulder Status: Acute (3) Tobacco abuse disorder Status: Acute (4) Hypercapnia Status: Acute (5) Hyperlipidemia Status: Acute (6) Hyperglycemia Status: Acute - Assessment and Plan (Free Text) Plan: Con tmeds start PT for MRI of the left shoulder cont meds.
--- NOTE | 2017-10-09 11:17 | CP.PCM.PN ---
Subjective - Date & Time of Evaluation Date of Evaluation: 10/09/17 Time of Evaluation: 10:00 - Subjective Subjective: Patient remains stable Has no chest pain or SOB On Bipap still with elevated CO 2 Desires to go home Objective - Vital Signs/Intake and Output Vital Signs (last 24 hours): Temp Pulse Resp BP Pulse Ox 98.5 F 79 18 107/68 97 10/09/17 08:23 10/09/17 08:23 10/09/17 08:23 10/09/17 08:23 10/09/17 08:23 - Medications Medications: Current Medications Albuterol/Ipratropium (Duoneb 3 Mg/0.5 Mg (3 Ml) Ud) 3 ml INH RQ4 [facility] Last Admin: 10/09/17 08:04 Dose: 3 ml Atorvastatin Calcium (Lipitor) 20 mg PO DAILY [facility] Last Admin: 10/08/17 08:38 Dose: 20 mg Methylprednisolone (Solu-Medrol) 80 mg IVP Q8H [facility] Last Admin: 10/09/17 08:57 Dose: 80 mg Pantoprazole Sodium (Protonix Ec Tab) 40 mg PO DAILY [facility] Last Admin: 10/09/17 08:57 Dose: 40 mg Fluticasone/Salmeterol (Advair Diskus 250/50) 1 puff IH Q12 [facility] Last Admin: 10/09/17 08:57 Dose: 1 puff - Labs Labs: 10/05/17 18:59 10/05/17 18:59 PT 11.5 Seconds (9.8-13.1) 10/05/17 18:59 INR 1.0 (0.9-1.2) 10/05/17 18:59 APTT 35.0 Seconds (25.6-37.1) 10/05/17 18:59 - Head Exam Head Exam: NORMAL INSPECTION - Eye Exam Eye Exam: Normal appearance - ENT Exam ENT Exam: Mucous Membranes Moist - Respiratory Exam Respiratory Exam: Clear to Ausculation Bilateral - Cardiovascular Exam Cardiovascular Exam: REGULAR RHYTHM - GI/Abdominal Exam GI & Abdominal Exam: Normal Bowel Sounds - Neurological Exam Neurological Exam: Awake, Oriented x3 Assessment and Plan (1) COPD exacerbation Status: Acute (2) Rotator cuff arthropathy of left shoulder Status: Acute (3) Tobacco abuse disorder Status: Acute (4) Hypercapnia Status: Acute (5) Hyperlipidemia Status: Acute (6) Hyperglycemia Status: Acute - Assessment and Plan (Free Text) Plan: Cont meds Cont tx Cont PT follow up MRI will discuss with Dr wei re need for BIpap at home.
[2017-10-09 11:35] LABS: ABG ALLEN TEST YES; ARTERIAL BLOOD GAS HCO3 36.3 mmol/L (21-28); ARTERIAL BLOOD GAS HEMOGLOBIN 10.8 g/dL (11.7-17.4); ARTERIAL BLOOD GAS O2 CAPACITY 14.7 mL/dL (16-24); ARTERIAL BLOOD GAS O2 CONTENT 14.5 ML/dL (15-23); ARTERIAL BLOOD GAS O2 SAT 98.7 % (95-98); ARTERIAL BLOOD GAS PCO2 78 mm/Hg (35-45); ARTERIAL BLOOD GAS PH 7.35 (7.35-7.45); ARTERIAL BLOOD GAS PO2 80 mm/Hg (80-100); ARTERIAL BLOOD GAS TCO2 45.5 mmol/L (22-28)
--- NOTE | 2017-10-09 11:52 | CP.PCM.PCO ---
Assessment/Plan - Assessment and Plan (Free Text) Assessment: Patient seen and examined VSS, on 2L NC Lungs with diminished breath sounds, less shortness of breath today ABG ordered, co2 @78 Patient will need bipap for home. RX given to FLAQUITO Edwards for home arrangements. Discussed with Dr Collins who agrees with dc plan Cleared by Dr Dee on medrol pack smoking cessation reinforced to patient. Patient with oxygen and nebulizer machine at home.
[2017-10-09 12:08] VITALS: BP 116/72; PULSE 91; TEMP 98.2
--- NOTE | 2017-10-09 16:30 | MRI ---
MRI left shoulder History: Shoulder pain. Comparison: None available. Technique: Multi-echo multiplanar sequences were performed through the left shoulder without the use of intravenous contrast. Findings: Thinning with increased signal seen within and at the undersurface of the distal supraspinatus tendon suggestive for articular surface fraying with an associated moderate tendinopathy. No gross full-thickness defect, tendon retraction, or muscle atrophy. Mild to moderate distal infraspinatus tendinopathy. No gross full-thickness defect, tendon retraction, or muscle atrophy. Teres minor tendon is preserved. Articular surface fraying with an associated moderate distal subscapularis tendinopathy. No gross tendon retraction or muscle atrophy. Proximal portion of the long head of the biceps tendon appears somewhat thinned and attenuated but otherwise preserved within the bicipital groove. Evaluation of the glenoid labrum demonstrates fraying with increased signal at the undersurface of the anterior labrum extending from superior to inferior suggestive for degenerative partial tearing. In addition, there is some fraying with increased signal noted at the level of the mid to posterior superior labrum also suggestive for degenerative partial tearing. Thickening with increased signal seen within the inferior glenohumeral ligament suggestive for a moderate grade strain. No significant glenohumeral joint effusion. 7 millimeter subchondral cyst formation noted within the posterior proximal humerus. Acromioclavicular joint space appears preserved. Impression: 1. Thinning with increased signal seen within and at the undersurface of the distal supraspinatus tendon suggestive for articular surface fraying with an associated moderate tendinopathy. 2. Mild to moderate distal infraspinatus tendinopathy. 3. Articular surface fraying with an associated moderate distal subscapularis tendinopathy. 4. Increased signal at the undersurface of the anterior glenoid labrum extending from superior to inferior suggestive for degenerative partial tearing. In addition, there is some fraying with increased signal noted at the level of the mid to posterior superior labrum also suggestive for degenerative partial tearing. 5. Thickening with increased signal seen within the inferior glenohumeral ligament suggestive for a moderate grade strain. 6. 7 millimeter subchondral cyst formation noted within the posterior proximal humerus.
== END 2017-10-09 15:05 | disposition home or self-care (01) | DRG 189 ==
LOC: H.ER 18:10 → H.ERHOLD 22:08 → H.TEL 23:24
PROVIDERS: ADMIT Family Medicine; ATTEND Family Medicine
PROC: 5A09457 Assistance with Respiratory Ventilation, 24-96 Consecutive Hours, Continuous Positive Airway Pressure (ICD-10-PCS; principal; 2017-10-05)
DX: J96.02 Acute respiratory failure with hypercapnia (principal); J44.1 Chronic obstructive pulmonary disease with (acute) exacerbation; Z99.81 Dependence on supplemental oxygen; R53.1 Weakness; E78.5 Hyperlipidemia, unspecified; R73.9 Hyperglycemia, unspecified; M12.812 Other specific arthropathies, not elsewhere classified, left shoulder; Z72.0 Tobacco use